=== PATIENT | male | born 1955 | race Two or more races ===

== ENCOUNTER 2020-08-19 14:38 | Inpatient (IN) | payer BC ==
[~2020-08-19] VITALS: Ht 165.1 cm; Wt 89.7 kg
[2020-08-19] MEDS: BUDESONIDE (INHALATION) 180 MCG IH IN SCH (06:47)
[2020-08-19] MEDS ORDERED: REMDESIVIR PER PHARMACY 0 ML IV SCH ×2 (15:15→17:30)
[2020-08-19] MEDS ORDERED: AZITHROMYCIN 500MG/ 250ML 250 ML IV ONE (15:15)
[2020-08-19] MEDS ORDERED: methylPREDNISolone SOD SUCC 125 MG/2 ML VL IV ONE (15:15)
[2020-08-19 17:14] LABS: Basophils # (auto) 0 10 ^3/uL (0-0.2); Basophils % (auto) 0.3 % (0.0-2.0); Eosinophils # (auto) 0 10 ^3/uL (0-0.8); Hematocrit 42.3 % (41.0-53.0); Hemoglobin 14.5 g/dL (13.5-17.5); Lymphocytes # (auto) 0.4 10 ^3/uL (0.4-5.4); Lymphocytes % (auto) 4.3 % (10.0-50.0); Mean Corpuscular Hgb Conc. 34.3 g/dL (32.0-36.0); Monocytes # (auto) 0.3 10 ^3/uL (0-1.3); Monocytes % (auto) 2.7 % (0.0-12.0); Neutrophils # (auto) 8.8 10 ^3/uL (1.6-8.6); Neutrophils % (auto) 92.7 % (37.0-80.0); Nucleated Red Blood Cells % 0.2 %; Platelet Count (auto) 305 10^3/uL (140-450); Red Blood Cells 4.41 10^6/uL (4.5-5.90); Red Cell Distribution Width 12.6 % (11.8-14.3); White Blood Cell 9.4 10^3/uL (4.4-10.8)
[2020-08-19 17:30] LABS: Albumin 2.9 g/dL (3.4-5.0); Anion Gap 5 (5-15); Blood Urea Nitrogen 17 mg/dL (7-18); Calcium 8.5 mg/dL (8.5-10.1); Carbon Dioxide 25 mmol/L (21-32); Chloride 102 mmol/L (98-107); Glucose 112 mg/dL (74-106); Magnesium 2.3 mg/dL (1.6-2.6); Potassium 3.9 mmol/L (3.5-5.1); Sodium 132 mmol/L (136-145)
[2020-08-19] MEDS ORDERED: diphenhdrAMINE HCL 50 MG/1 ML VL IV PRN (17:30)
[2020-08-19] MEDS ORDERED: PROMETHAZINE HCL 25 MG/ML 1ML IV PRN (17:30)
[2020-08-19] MEDS ORDERED: TEMAZEPAM 15 MG CAP PO PRN (17:30)
[2020-08-19] MEDS ORDERED: traMADol HCL 50 MG TAB PO PRN (17:30)
[2020-08-19] MEDS ORDERED: NITROGLYCERIN 0.4 MG SL TAB SL PRN (17:30)
[2020-08-19] MEDS ORDERED: ACETAMINOPHEN 500 MG TAB PO PRN (17:30)
[2020-08-19] MEDS ORDERED: MORPHINE SULF INJ 2 MG/ML SYRINGE 1ML IV PRN ×2 (17:30)
[2020-08-19 17:37] LABS: Alanine Aminotransferase 27 U/L (16-61); Alkaline Phosphatase 70 U/L (45-117); Aspartate Aminotransferase 48 U/L (15-37); BUN/Creatinine Ratio 16.7; Bilirubin, Total 0.9 mg/dL (0.2-1.0); GFR African American 95 mL/min; GFR Non-African American 79 mL/min; Total Protein 7.8 g/dL (6.4-8.2)
[2020-08-19] MEDS: SODIUM CHLORIDE 0.9% 1,000 ML IV SCH ×3 (18:59→21:05)
[2020-08-19] MEDS ORDERED: REMDESIVIR 200 MG in NS 210ml LOADING DOSE ADULT IV ONE (20:30)
[2020-08-19] MEDS: ENOXAPARIN SOD 40 MG/0.4 ML SYRINGE SC SCH (21:41)
[2020-08-19] MEDS: FAMOTIDINE (10MG/ML) 2ML VL IV SCH (21:41)
[2020-08-20] VITALS (10 sets, daily range): BP systolic 113–145; BP diastolic 60–78
[2020-08-20 05:53] LABS: Basophils # (auto) 0 10 ^3/uL (0-0.2); Basophils % (auto) 0.3 % (0.0-2.0); Eosinophils # (auto) 0 10 ^3/uL (0-0.8); Hematocrit 38.6 % (41.0-53.0); Hemoglobin 12.9 g/dL (13.5-17.5); Lymphocytes # (auto) 0.9 10 ^3/uL (0.4-5.4); Lymphocytes % (auto) 9.9 % (10.0-50.0); Mean Corpuscular Hemoglobin 32.3 pg (28.0-32.0); Mean Corpuscular Hgb Conc. 33.4 g/dL (32.0-36.0); Mean Corpuscular Volume 96.7 fL (80.0-100.0); Monocytes # (auto) 0.4 10 ^3/uL (0-1.3); Monocytes % (auto) 4.3 % (0.0-12.0); Neutrophils # (auto) 7.4 10 ^3/uL (1.6-8.6); Neutrophils % (auto) 85.5 % (37.0-80.0); Nucleated Red Blood Cells % 0.1 %; Platelet Count (auto) 311 10^3/uL (140-450); Red Blood Cells 3.99 10^6/uL (4.5-5.90); Red Cell Distribution Width 12.5 % (11.8-14.3); White Blood Cell 8.7 10^3/uL (4.4-10.8)
[2020-08-20 06:03] LABS: Albumin 2.6 g/dL (3.4-5.0); Calcium 8.4 mg/dL (8.5-10.1); Potassium 4.2 mmol/L (3.5-5.1)
[2020-08-20 06:06] LABS: Bilirubin, Total 0.9 mg/dL (0.2-1.0); Total Protein 7.3 g/dL (6.4-8.2)
[2020-08-20] MEDS: BUDESONIDE (INHALATION) 180 MCG IH IN SCH ×2 (06:47→18:10)
[2020-08-20] MEDS: ALBUTEROL SULF HFA 90MCG INH 200DOSE IN PRN ×2 (06:47→23:46)
[2020-08-20] MEDS: ZINC SULFATE 220mg CAP or TAB PO SCH (09:20)
[2020-08-20] MEDS: DexAMETHasone SOD PHOS 10MG/1ML VIAL INJ IV SCH (09:20)
[2020-08-20] MEDS: levoFLOXacin 500MG 100 ML IV SCH (09:20)
[2020-08-20] MEDS: ENOXAPARIN SOD 40 MG/0.4 ML SYRINGE SC SCH (09:21)
[2020-08-20] MEDS: CHOLECALCIFEROL (VITD3) 2,000 UNIT CAP PO SCH (09:21)
[2020-08-20] MEDS: ASCORBIC ACID 1,000 MG TAB PO SCH (09:21)
[2020-08-20] MEDS: FAMOTIDINE (10MG/ML) 2ML VL IV SCH ×2 (16:19→20:42)
[2020-08-20] MEDS: REMDESIVIR 100 MG in SODIUM CHL 0.9% 250 ML IV SCH (16:59)
[2020-08-20 17:00] LABS: Urine WBC None Seen /hpf (0 - 3)
[2020-08-20 17:09] LABS: Urine Bacteria NONE SEEN /hpf (None Seen); Urine Blood Negative /uL (Negative); Urine Mucus FEW (None Seen); Urine Specific Gravity 1.021 (1.001-1.035)
[2020-08-20] MEDS: ENOXAPARIN SOD 100 MG/1 ML SYRINGE SC SCH (20:42)
[2020-08-21] MEDS: BUDESONIDE (INHALATION) 180 MCG IH IN SCH ×2 (06:28→22:20)
[2020-08-21] MEDS: ALBUTEROL SULF HFA 90MCG INH 200DOSE IN PRN ×2 (06:28→23:48)
[2020-08-21 06:48] LABS: Basophils # (auto) 0 10 ^3/uL (0-0.2); Basophils % (auto) 0.1 % (0.0-2.0); Eosinophils # (auto) 0 10 ^3/uL (0-0.8); Hemoglobin 12.9 g/dL (13.5-17.5); Lymphocytes # (auto) 0.5 10 ^3/uL (0.4-5.4); Lymphocytes % (auto) 5.9 % (10.0-50.0); Mean Corpuscular Hemoglobin 33.1 pg (28.0-32.0); Mean Corpuscular Volume 97.4 fL (80.0-100.0); Monocytes # (auto) 0.4 10 ^3/uL (0-1.3); Monocytes % (auto) 4.3 % (0.0-12.0); Neutrophils # (auto) 8.2 10 ^3/uL (1.6-8.6); Neutrophils % (auto) 89.7 % (37.0-80.0); Nucleated Red Blood Cells % 0.2 %; Platelet Count (auto) 385 10^3/uL (140-450); Red Cell Distribution Width 12.7 % (11.8-14.3); White Blood Cell 9.1 10^3/uL (4.4-10.8)
[2020-08-21 07:13] LABS: Calcium 8.7 mg/dL (8.5-10.1); Potassium 3.7 mmol/L (3.5-5.1)
[2020-08-21 07:16] LABS: BUN/Creatinine Ratio 24.4
[2020-08-21 09:00] VITALS: BP 103/70
[2020-08-21] MEDS: DexAMETHasone SOD PHOS 10MG/1ML VIAL INJ IV SCH (09:12)
[2020-08-21] MEDS: levoFLOXacin 500MG 100 ML IV SCH (09:12)
[2020-08-21] MEDS: CHOLECALCIFEROL (VITD3) 2,000 UNIT CAP PO SCH (09:13)
[2020-08-21] MEDS: ZINC SULFATE 220mg CAP or TAB PO SCH (09:13)
[2020-08-21] MEDS: FAMOTIDINE (10MG/ML) 2ML VL IV SCH ×2 (09:13→21:52)
[2020-08-21] MEDS: ASCORBIC ACID 1,000 MG TAB PO SCH (09:13)
[2020-08-21] MEDS: ENOXAPARIN SOD 100 MG/1 ML SYRINGE SC SCH ×2 (09:14→21:52)
[2020-08-21 13:00] VITALS: BP 108/68
[2020-08-21] MEDS: REMDESIVIR 100 MG in SODIUM CHL 0.9% 250 ML IV SCH (15:30)
[2020-08-21 17:00] VITALS: BP 112/66
[2020-08-21 22:00] VITALS: BP 94/58
[2020-08-22 04:34] VITALS: BP_SYST 100; BP_SYST 111; BP_DIAS 57; BP_DIAS 66
[2020-08-22 08:40] VITALS: BP 113/66
[2020-08-22] MEDS: BUDESONIDE (INHALATION) 180 MCG IH IN SCH ×2 (09:27→22:50)
[2020-08-22] MEDS: ALBUTEROL SULF HFA 90MCG INH 200DOSE IN PRN ×2 (09:27→22:50)
[2020-08-22] MEDS: CHOLECALCIFEROL (VITD3) 2,000 UNIT CAP PO SCH (10:00)
[2020-08-22] MEDS: DexAMETHasone SOD PHOS 10MG/1ML VIAL INJ IV SCH (10:25)
[2020-08-22] MEDS: levoFLOXacin 500MG 100 ML IV SCH (10:25)
[2020-08-22] MEDS: FAMOTIDINE (10MG/ML) 2ML VL IV SCH ×2 (10:25→21:28)
[2020-08-22] MEDS: ZINC SULFATE 220mg CAP or TAB PO SCH (10:26)
[2020-08-22] MEDS: ASCORBIC ACID 1,000 MG TAB PO SCH (10:27)
[2020-08-22] MEDS: ENOXAPARIN SOD 100 MG/1 ML SYRINGE SC SCH ×2 (10:30→21:28)
[2020-08-22 13:21] VITALS: BP 116/71
[2020-08-22] MEDS: REMDESIVIR 100 MG in SODIUM CHL 0.9% 250 ML IV SCH (15:15)
[2020-08-22 17:26] VITALS: BP 120/54
[2020-08-22 22:00] VITALS: BP 100/58
[2020-08-23 05:05] VITALS: BP 105/60
[2020-08-23 07:11] LABS: Basophils # (auto) 0 10 ^3/uL (0-0.2); Eosinophils # (auto) 0 10 ^3/uL (0-0.8); Hemoglobin 12.6 g/dL (13.5-17.5); Lymphocytes # (auto) 0.6 10 ^3/uL (0.4-5.4); Monocytes # (auto) 0.3 10 ^3/uL (0-1.3); Nucleated Red Blood Cells % 0.1 %
[2020-08-23 07:18] LABS: Basophils % (auto) 0.1 % (0.0-2.0); Hematocrit 36.6 % (41.0-53.0); Lymphocytes % (auto) 5.3 % (10.0-50.0); Mean Corpuscular Hemoglobin 33.4 pg (28.0-32.0); Mean Corpuscular Hgb Conc. 34.4 g/dL (32.0-36.0); Monocytes % (auto) 2.7 % (0.0-12.0); Neutrophils # (auto) 10.3 10 ^3/uL (1.6-8.6); Neutrophils % (auto) 91.9 % (37.0-80.0); Platelet Count (auto) 475 10^3/uL (140-450); Red Blood Cells 3.77 10^6/uL (4.5-5.90); Red Cell Distribution Width 12.5 % (11.8-14.3); White Blood Cell 11.2 10^3/uL (4.4-10.8)
[2020-08-23 07:50] LABS: Potassium 3.8 mmol/L (3.5-5.1)
[2020-08-23 08:12] LABS: Albumin 2.6 g/dL (3.4-5.0); BUN/Creatinine Ratio 25.3; Calcium 8.9 mg/dL (8.5-10.1); Total Protein 7.1 g/dL (6.4-8.2)
[2020-08-23] MEDS: BUDESONIDE (INHALATION) 180 MCG IH IN SCH ×2 (08:20→22:40)
[2020-08-23] MEDS: ALBUTEROL SULF HFA 90MCG INH 200DOSE IN PRN ×2 (08:21→22:40)
[2020-08-23 08:59] VITALS: BP 109/68
[2020-08-23] MEDS: CHOLECALCIFEROL (VITD3) 2,000 UNIT CAP PO SCH (10:00)
[2020-08-23] MEDS: levoFLOXacin 500MG 100 ML IV SCH (10:34)
[2020-08-23] MEDS: ZINC SULFATE 220mg CAP or TAB PO SCH (10:35)
[2020-08-23] MEDS: ASCORBIC ACID 1,000 MG TAB PO SCH (10:35)
[2020-08-23] MEDS: ENOXAPARIN SOD 100 MG/1 ML SYRINGE SC SCH ×2 (10:35→22:25)
[2020-08-23] MEDS: FAMOTIDINE (10MG/ML) 2ML VL IV SCH ×2 (10:35→22:25)
[2020-08-23] MEDS: DexAMETHasone SOD PHOS 10MG/1ML VIAL INJ IV SCH (10:35)
[2020-08-23 13:00] VITALS: BP 105/66
[2020-08-23] MEDS: REMDESIVIR 100 MG in SODIUM CHL 0.9% 250 ML IV SCH (15:58)
[2020-08-23 17:26] VITALS: BP 120/69
[2020-08-23 21:34] VITALS: BP 119/71
[2020-08-24 05:00] VITALS: BP 103/65
[2020-08-24 08:30] VITALS: BP 105/66
[2020-08-24] MEDS: FAMOTIDINE (10MG/ML) 2ML VL IV SCH ×2 (10:13→21:25)
[2020-08-24] MEDS: levoFLOXacin 500MG 100 ML IV SCH (10:13)
[2020-08-24] MEDS: DexAMETHasone SOD PHOS 10MG/1ML VIAL INJ IV SCH (10:13)
[2020-08-24] MEDS: ENOXAPARIN SOD 100 MG/1 ML SYRINGE SC SCH ×2 (10:14→21:25)
[2020-08-24] MEDS: ASCORBIC ACID 1,000 MG TAB PO SCH (10:14)
[2020-08-24] MEDS: CHOLECALCIFEROL (VITD3) 2,000 UNIT CAP PO SCH (10:14)
[2020-08-24] MEDS: ZINC SULFATE 220mg CAP or TAB PO SCH (10:14)
[2020-08-24 12:30] VITALS: BP 98/75
[2020-08-24] MEDS ORDERED: FUROSEMIDE 20 MG/2 ML VIAL IV ONE (15:15)
[2020-08-24] MEDS ORDERED: POTASSIUM CHL 20 Meq TABLET PO ONE (15:15)
[2020-08-24 17:00] VITALS: BP_SYST 101; BP_SYST 98; BP_DIAS 67; BP_DIAS 69
[2020-08-24] MEDS: BUDESONIDE (INHALATION) 180 MCG IH IN SCH (20:52)
[2020-08-24] MEDS: ALBUTEROL SULF HFA 90MCG INH 200DOSE IN PRN (20:53)
[2020-08-24 21:00] VITALS: BP 119/69
[2020-08-25] MEDS: ALBUTEROL SULF HFA 90MCG INH 200DOSE IN PRN ×2 (07:33→21:37)
[2020-08-25] MEDS: BUDESONIDE (INHALATION) 180 MCG IH IN SCH ×3 (07:33→19:59)
[2020-08-25 08:19] LABS: Potassium 4.2 mmol/L (3.5-5.1)
[2020-08-25 08:24] LABS: BUN/Creatinine Ratio 24.2; Calcium 9.1 mg/dL (8.5-10.1)
[2020-08-25 09:00] VITALS: BP 97/68
[2020-08-25] MEDS: levoFLOXacin 500MG 100 ML IV SCH (10:06)
[2020-08-25] MEDS: POTASSIUM CHL 20 Meq TABLET PO SCH (10:06)
[2020-08-25] MEDS: ASCORBIC ACID 1,000 MG TAB PO SCH (10:06)
[2020-08-25] MEDS: DexAMETHasone SOD PHOS 10MG/1ML VIAL INJ IV SCH (10:06)
[2020-08-25] MEDS: ZINC SULFATE 220mg CAP or TAB PO SCH (10:06)
[2020-08-25] MEDS: FAMOTIDINE (10MG/ML) 2ML VL IV SCH ×2 (10:06→21:57)
[2020-08-25] MEDS: FUROSEMIDE 20 MG/2 ML VIAL IV SCH (10:07)
[2020-08-25] MEDS: ENOXAPARIN SOD 100 MG/1 ML SYRINGE SC SCH ×2 (10:07→21:58)
[2020-08-25] MEDS: CHOLECALCIFEROL (VITD3) 2,000 UNIT CAP PO SCH (10:07)
[2020-08-25 13:00] VITALS: BP 108/66
[2020-08-26 06:00] VITALS: BP 104/67
[2020-08-26] MEDS: ALBUTEROL SULF HFA 90MCG INH 200DOSE IN PRN ×2 (08:20→22:20)
[2020-08-26] MEDS: BUDESONIDE (INHALATION) 180 MCG IH IN SCH ×2 (08:20→22:20)
[2020-08-26 08:30] VITALS: BP 92/57
[2020-08-26] MEDS: POTASSIUM CHL 20 Meq TABLET PO SCH (10:00)
[2020-08-26] MEDS: FUROSEMIDE 20 MG/2 ML VIAL IV SCH (10:00)
[2020-08-26] MEDS: levoFLOXacin 500MG 100 ML IV SCH (10:04)
[2020-08-26] MEDS: DexAMETHasone SOD PHOS 10MG/1ML VIAL INJ IV SCH (10:04)
[2020-08-26] MEDS: FAMOTIDINE (10MG/ML) 2ML VL IV SCH ×2 (10:05→21:57)
[2020-08-26] MEDS: ZINC SULFATE 220mg CAP or TAB PO SCH (10:05)
[2020-08-26] MEDS: ENOXAPARIN SOD 100 MG/1 ML SYRINGE SC SCH ×2 (10:06→21:57)
[2020-08-26] MEDS: ASCORBIC ACID 1,000 MG TAB PO SCH (10:06)
[2020-08-26] MEDS: CHOLECALCIFEROL (VITD3) 2,000 UNIT CAP PO SCH (10:06)
[2020-08-26 16:00] VITALS: BP 113/74
[2020-08-26 22:00] VITALS: BP 101/70
[2020-08-27 07:47] LABS: Potassium 4.3 mmol/L (3.5-5.1)
[2020-08-27 07:54] LABS: BUN/Creatinine Ratio 28.8; Calcium 9.2 mg/dL (8.5-10.1)
[2020-08-27 08:34] VITALS: BP 107/68
[2020-08-27] MEDS: BUDESONIDE (INHALATION) 180 MCG IH IN SCH ×2 (10:00→23:46)
[2020-08-27] MEDS: CHOLECALCIFEROL (VITD3) 2,000 UNIT CAP PO SCH (10:02)
[2020-08-27] MEDS: ASCORBIC ACID 1,000 MG TAB PO SCH (10:02)
[2020-08-27] MEDS: levoFLOXacin 500MG 100 ML IV SCH (10:02)
[2020-08-27] MEDS: ZINC SULFATE 220mg CAP or TAB PO SCH (10:02)
[2020-08-27] MEDS: FAMOTIDINE (10MG/ML) 2ML VL IV SCH ×2 (10:03→21:45)
[2020-08-27] MEDS: ENOXAPARIN SOD 100 MG/1 ML SYRINGE SC SCH ×2 (10:03→21:46)
[2020-08-27] MEDS: POTASSIUM CHL 20 Meq TABLET PO SCH (10:03)
[2020-08-27] MEDS: DexAMETHasone SOD PHOS 10MG/1ML VIAL INJ IV SCH (10:03)
[2020-08-27] MEDS: FUROSEMIDE 20 MG/2 ML VIAL IV SCH (10:04)
[2020-08-27 22:23] VITALS: BP 116/36
[2020-08-28 05:27] VITALS: BP 104/60
[2020-08-28 07:31] LABS: Hematocrit 41.1 % (41.0-53.0); Mean Corpuscular Hemoglobin 32.6 pg (28.0-32.0); Mean Corpuscular Hgb Conc. 34.1 g/dL (32.0-36.0); Mean Corpuscular Volume 95.5 fL (80.0-100.0); Platelet Count (auto) 600 10^3/uL (140-450); Red Blood Cells 4.31 10^6/uL (4.5-5.90); Red Cell Distribution Width 12.6 % (11.8-14.3)
[2020-08-28 08:00] VITALS: BP 94/54
[2020-08-28 08:10] LABS: Basophils % (manual) 0 (0.0-2.0); Blast Cells 0; Eosinophils % (manual) 0 (0-7); Promyelocytes % 0; Reactive Lymphocytes 0
[2020-08-28] MEDS: ZINC SULFATE 220mg CAP or TAB PO SCH (09:12)
[2020-08-28] MEDS: ENOXAPARIN SOD 100 MG/1 ML SYRINGE SC SCH ×2 (09:12→23:04)
[2020-08-28] MEDS: ASCORBIC ACID 1,000 MG TAB PO SCH (09:12)
[2020-08-28] MEDS: FAMOTIDINE (10MG/ML) 2ML VL IV SCH ×2 (09:12→23:04)
[2020-08-28] MEDS: CHOLECALCIFEROL (VITD3) 2,000 UNIT CAP PO SCH (09:12)
[2020-08-28] MEDS: levoFLOXacin 500MG 100 ML IV SCH (09:13)
[2020-08-28] MEDS: BUDESONIDE (INHALATION) 180 MCG IH IN SCH ×2 (09:13→23:04)
[2020-08-28] MEDS: DexAMETHasone SOD PHOS 10MG/1ML VIAL INJ IV SCH (09:13)
[2020-08-28] MEDS: FUROSEMIDE 20 MG/2 ML VIAL IV SCH (09:14)
[2020-08-28] MEDS: POTASSIUM CHL 20 Meq TABLET PO SCH (10:00)
[2020-08-28 10:53] LABS: Band Neutrophils % (manual) 3; Lymphocytes % (manual) 5 (10.0-50.0); Metamyelocytes % 1; Monocytes % (manual) 3 (0-12); Myelocytes % 1
[2020-08-28 16:00] VITALS: BP 115/76
[2020-08-29] VITALS: BP 114/66
[2020-08-29 07:58] VITALS: BP 101/64
[2020-08-29] MEDS: FAMOTIDINE (10MG/ML) 2ML VL IV SCH ×2 (08:10→20:56)
[2020-08-29] MEDS: ENOXAPARIN SOD 100 MG/1 ML SYRINGE SC SCH ×2 (08:10→20:56)
[2020-08-29] MEDS: ASCORBIC ACID 1,000 MG TAB PO SCH (08:10)
[2020-08-29] MEDS: POTASSIUM CHL 20 Meq TABLET PO SCH (08:10)
[2020-08-29] MEDS: ZINC SULFATE 220mg CAP or TAB PO SCH (08:10)
[2020-08-29] MEDS: levoFLOXacin 500MG 100 ML IV SCH (08:11)
[2020-08-29] MEDS: DexAMETHasone SOD PHOS 10MG/1ML VIAL INJ IV SCH (08:11)
[2020-08-29] MEDS: CHOLECALCIFEROL (VITD3) 2,000 UNIT CAP PO SCH (08:11)
[2020-08-29] MEDS: FUROSEMIDE 20 MG/2 ML VIAL IV SCH (10:00)
[2020-08-29] MEDS: BUDESONIDE (INHALATION) 180 MCG IH IN SCH ×2 (10:00→22:27)
[2020-08-29 16:00] VITALS: BP 107/70
[2020-08-29] MEDS: ALBUTEROL SULF HFA 90MCG INH 200DOSE IN PRN (22:27)
[2020-08-30] VITALS: BP 94/55
[2020-08-30] MEDS: BUDESONIDE (INHALATION) 180 MCG IH IN SCH ×2 (07:59→20:50)
[2020-08-30] MEDS: ALBUTEROL SULF HFA 90MCG INH 200DOSE IN PRN ×2 (07:59→20:50)
[2020-08-30 09:00] VITALS: BP 108/68
[2020-08-30] MEDS: levoFLOXacin 500MG 100 ML IV SCH (11:24)
[2020-08-30] MEDS: POTASSIUM CHL 20 Meq TABLET PO SCH (11:24)
[2020-08-30] MEDS: ENOXAPARIN SOD 100 MG/1 ML SYRINGE SC SCH ×2 (11:24→20:54)
[2020-08-30] MEDS: DexAMETHasone SOD PHOS 10MG/1ML VIAL INJ IV SCH (11:25)
[2020-08-30] MEDS: FAMOTIDINE (10MG/ML) 2ML VL IV SCH (11:25)
[2020-08-30] MEDS: FUROSEMIDE 20 MG/2 ML VIAL IV SCH (11:25)
[2020-08-30] MEDS: ASCORBIC ACID 1,000 MG TAB PO SCH (11:26)
[2020-08-30] MEDS: ZINC SULFATE 220mg CAP or TAB PO SCH (11:26)
[2020-08-30] MEDS: CHOLECALCIFEROL (VITD3) 2,000 UNIT CAP PO SCH (11:27)
[2020-08-30 16:35] VITALS: BP 99/59
[2020-08-31] VITALS: BP 106/69
[2020-08-31] MEDS: BUDESONIDE (INHALATION) 180 MCG IH IN SCH ×2 (08:01→19:52)
[2020-08-31] MEDS: ALBUTEROL SULF HFA 90MCG INH 200DOSE IN PRN ×2 (08:01→19:52)
[2020-08-31 09:00] VITALS: BP 102/72
[2020-08-31] MEDS: ZINC SULFATE 220mg CAP or TAB PO SCH (10:22)
[2020-08-31] MEDS: FUROSEMIDE 20 MG/2 ML VIAL IV SCH (10:22)
[2020-08-31] MEDS: levoFLOXacin 500 MG TAB PO SCH (10:23)
[2020-08-31] MEDS: ASCORBIC ACID 1,000 MG TAB PO SCH (10:23)
[2020-08-31] MEDS: DexAMETHasone 4 MG TAB PO SCH (10:23)
[2020-08-31] MEDS: POTASSIUM CHL 20 Meq TABLET PO SCH (10:24)
[2020-08-31] MEDS: FAMOTIDINE 20 MG TAB PO SCH (10:25)
[2020-08-31] MEDS: CHOLECALCIFEROL (VITD3) 2,000 UNIT CAP PO SCH (10:25)
[2020-08-31] MEDS: ENOXAPARIN SOD 100 MG/1 ML SYRINGE SC SCH ×2 (10:25→21:55)
[2020-08-31 16:00] VITALS: BP 100/69
[2020-09-01] VITALS: BP 116/73
[2020-09-01 08:00] VITALS: BP 118/69
[2020-09-01] MEDS: ALBUTEROL SULF HFA 90MCG INH 200DOSE IN PRN (09:58)
[2020-09-01] MEDS: BUDESONIDE (INHALATION) 180 MCG IH IN SCH (09:58)
[2020-09-01] MEDS: ASCORBIC ACID 1,000 MG TAB PO SCH (10:22)
[2020-09-01] MEDS: levoFLOXacin 500 MG TAB PO SCH (10:22)
[2020-09-01] MEDS: POTASSIUM CHL 20 Meq TABLET PO SCH (10:22)
[2020-09-01] MEDS: ZINC SULFATE 220mg CAP or TAB PO SCH (10:22)
[2020-09-01] MEDS: DexAMETHasone 4 MG TAB PO SCH (10:23)
[2020-09-01] MEDS: FAMOTIDINE 20 MG TAB PO SCH (10:23)
[2020-09-01] MEDS: CHOLECALCIFEROL (VITD3) 2,000 UNIT CAP PO SCH (10:24)
[2020-09-01] MEDS: FUROSEMIDE 20 MG/2 ML VIAL IV SCH (10:24)
[2020-09-01] MEDS: ENOXAPARIN SOD 100 MG/1 ML SYRINGE SC SCH (10:24)
[2020-09-01 14:08] VITALS: BP 118/69
== END 2020-09-01 16:10 | disposition home or self-care (01) | DRG 871 ==
LOC: ER 14:38 → EDBD 14:38 → EDUNIT# 14:38 → TELE-CENTR 14:39 → TELE-EAST 08-20 03:05 → EAST 08-21 10:27 → TELE-EAST 08-27 23:19
PROVIDERS: ADMIT Internal Medicine; ATTEND Internal Medicine
PROC: XW033E5 Introduction of Remdesivir Anti-infective into Peripheral Vein, Percutaneous Approach, New Technology Group 5 (ICD-10-PCS; principal; 2020-08-19)
PROC: XW13325 Transfusion of Convalescent Plasma (Nonautologous) into Peripheral Vein, Percutaneous Approach, New Technology Group 5 (ICD-10-PCS; 2020-08-20)
DX: A41.89 Other specified sepsis (principal); J12.89 Other viral pneumonia; J96.01 Acute respiratory failure with hypoxia; U07.1 COVID-19; E87.1 Hypo-osmolality and hyponatremia; Z68.32 Body mass index [BMI] 32.0-32.9, adult; Z79.82 Long term (current) use of aspirin; Z82.49 Family history of ischemic heart disease and other diseases of the circulatory system; R73.9 Hyperglycemia, unspecified; R65.20 Severe sepsis without septic shock; R74.01 Elevation of levels of liver transaminase levels; E66.01 Morbid (severe) obesity due to excess calories
CPT/HCPCS: 36415; 71045; 80048; 80053; 81001; 82728; 83605; 83735; 84484; 85007; 85025; 85027; 85379; 86141; 86850; 86900; 86901; 87040; 87426; 94640; 99291; G0378; J1100; J1956; J3490

== ENCOUNTER 2023-03-20 15:54 | Emergency (ER) | payer BC, OTHER ==
[~2023-03-20] VITALS: Ht 165.1 cm; Wt 101.9 kg
[2023-03-20 19:56] VITALS: BP 127/82; RESP 16; TEMP 98.6; O2SAT 94
[2023-03-20 20:56] VITALS: PULSE 103
== END 2023-03-20 21:49 | disposition home or self-care (01) ==
LOC: ER 15:54
DX: R42 Dizziness and giddiness (principal); E78.5 Hyperlipidemia, unspecified; V43.62XA Car passenger injured in collision with other type car in traffic accident, initial encounter; Y93.89 Activity, other specified; Y92.488 Other paved roadways as the place of occurrence of the external cause; Y99.8 Other external cause status
CPT/HCPCS: 70450; 93005